=== PATIENT | female | born 1940 | race Caucasian/White ===

== ENCOUNTER 2024-04-22 15:02 | Inpatient (IN) | payer OTHER, SELFPAY ==
[2024-04-22] VITALS (12 sets, daily range): BP systolic 82–165; BP diastolic 52–97; BMI 29.2
--- NOTE | 2024-04-22 09:46 | W.PN.CARDCBS ---
Today's Communication / Plan
-
DC pacemaker implant
CXR post procedure
Check creat, K+ in AM
Impression / Plan
-
This is the H&P summary.
Fully H&P scanned into chart.
PCP: Dorita Wilcox NP
CDY: Richard Davalos MD
HPI: 83 y/o white female, several episodes syncope in the past year that was felt to be r/t orthostasis and dehydration. She has never seen a data control clerk supervisor and has never had a Holter monitor. She did have an echo about a year ago which showed
preserved LVEF 50-55%, Mild aortic stenosis and trace aortic regurgitation.
She was at home and became confused and lethargic, called for help. Lives w/son and daughter in law who called EMS, concerned for dehydration. Initial EKG with 3rd deg HB with junctional escape in the 20s, no clear ischemic changes. Brought to [facility]
where she remained lethargic and confused, therefore a temporary pacemaker was placed via RIJ. Procedure complicated by loss of escape rhyhm and failur to capture, resulting in brief PEA arrest. ROSC achieved after CPR, intubation, and successful
capture with TVP wire. Stat bedside echo in the ICU showed preserved or low normal LVEF around 50%, nml RVSF, no severe or MR, no pericardial effusion.
Post extubation, she became hypoxemic with pulmonary edema, responded well to IV lasix.
Transferred today for pacemaker implant. Currently awake and alert, answering questions appropriately.
TVP currently functioning well and set to VVI rate 100, output 2mA. Tested capture threshold excellent at 0.6mA.
IMPRESSION:
Syncope
Complete heart block
Cardiogenic shock d/t heart block/bradycardia
Brief PEA s/p CPR with ROSC
Pulmonary edema
Transient OSEAS, resolved
Hyperkalemia, resolved
HTN
HLD
DM
PLAN:
Pt is extubated and mentating normally
All AVN blockers were held- pt on acebutelol 400mg/daily
DC PPM implant today
CXR post procedure
Resume acebutelol post device
monitor overnight on tele
Creatinine up to 1.16 on admission, now down to 0.79
Potassium 6.5 on admit, now 4.2
repeat labs in AM
Cardiology followup and incision check with Dr. Davalos
Progress Note - Rickshaw Driver
Subjective
Date of Service: April 22, 2024
[2024-04-22 10:47] LABS: Glucose - Point of Care 138 mg/dl (70-99)
--- NOTE | 2024-04-22 12:46 | ITS.CL.PACE ---
[employer] - Pacemaker Implant
Pacemaker Implant
Procedure Report:
Date of Procedure: April 22, 2024.
Procedure: Pacemaker Implantation. Left upper extremity venogram. Temporary pacemaker removal.
Indication: The pacemaker is for the treatment of nonreversible symptomatic bradycardia due to paroxysmal third degree atrioventricular block resulting in recurrent syncope.
Performing physician: Arthur Dickinson MD, [facility].
Implants:
Pulse Generator: Medtronic; Model# [id number]; Serial# [id number].
RA Lead: Medtronic; Model# 5076-45cm; Serial# [id number].
RV Lead: Medtronic; Model# 5076-52cm; Serial# [id number].
Technique: A time out was performed. The procedure site was identified. The patient was anesthetized by the anesthesia service. Preoperative cefazolin was administered. The patient was prepped and draped in the usual fashion. Local anesthetic was
applied to the left prepectoral subcutaneous tissue. A 3 inch incision was made along the left deltopectoral groove. Dissection was carried to the fascia. The left cephalic vein was not found. A 10 mL upper extremity venogram demonstrated patent
left axillary, cephalic, and subclavian veins. The left axillary vein was accessed with two separate percutaneous micro- punctures without difficulty. The leads were introduced with hemostatic peel away introducer sheaths. The RV lead was placed at
the mid RV septum as confirmed by multiplane fluoroscopy. The ventricular lead was secured to the pectoralis muscle and fascia with two 0-silk sutures. The atrial lead was placed in the right atrial appendage. 8 volt pacing from each lead did not
capture the diaphragm. The atrial leads was secured to the pectoralis muscle and fascia. A subcutaneous pocket was created with Bovie cautery. Hemostasis was excellent. The leads were appropriately attached to the device. The pocket was irrigated
with antibiotic solution. The device and leads were placed in the pocket. The temporary pacemaker from the right internal jugular vein was removed under fluoroscopic control. The right internal jugular sheath was removed and hemostasis was achieved
with manual compression. The incision was closed in three layers with absorbable suture. Steri-strips and a silver impregnated dressing were placed. Estimated blood loss was less than t ml. There were no complications. Fluoroscopy time 4.2 minutes
and DAP 1.06 GyCM2. The device was then interrogated after skin closure.
Lead Analysis:
RA lead: P: 1.5 mV; Threshold: 0.5 V @ 0.4 ms; Impedance: 437 ohms.
RV lead: R: 5.8 mV; Threshold: 0.5 V @ 0.4 ms; Impedance: 570 ohms.
Final Programming: DDDR 60-130 bpm.
Conclusion: Uncomplicated Medtronic pacemaker implant. The pacing system is MRI conditional.
Recommendation: Routine post pacemaker care.
cc: HERNAN James and Richard Davalos MD ([facility] Cardiology).
[2024-04-22 14:16] LABS: Glucose - Point of Care 136 mg/dl (70-99)
[2024-04-22] MEDS: NOVOLOG FLEXPEN-MODERATE RESISTANCE SC (14:20)
[2024-04-22] MEDS: ULTRAM 25 MG PO ×2 (14:35→20:45)
--- NOTE | 2024-04-22 15:22 | PTCARENOTE ---
Rec'd Pt 1300 from EP lab s/p PPM, A,A+Ox3, having some discomfort L CW. Pressure dsg D+I.
--- NOTE | 2024-04-22 15:26 | CM ---
Reviewed chart. Met with Mrs. Nair and her son and [id number] in a two story home with four steps to enter. She has a full flight of stairs to get to bedroom/full bathroom. She states shs has a stair glide to get to the second floor. She has
a powder oom on the first floor. Prior to admission she ambulates in the home independent and uses a single point cane in the community. She has a stair glide and single point cane in the home. She has never had [facility]. She states her
family will be able to be available to assist her or the first three weeks if needed. She states she has a prescription plan. Medical work-up in progress. The discharge plan is to return home with her son and [id number] when medically
stable.
[2024-04-22 17:37] LABS: Glucose - Point of Care 262 mg/dl (70-99)
[2024-04-22] MEDS: ANCEF 5 IV (18:06)
[2024-04-22] MEDS: NOVOLOG FLEXPEN-MODERATE RESISTANCE 5 UNITS SC (18:08)
[2024-04-22] MEDS: NEURONTIN 600 MG PO (20:37)
[2024-04-22] MEDS: SECTRAL 400 MG PO (20:38)
[2024-04-22 21:50] LABS: Glucose - Point of Care 138 mg/dl (70-99)
[2024-04-23 01:56] VITALS: BP 141/76
[2024-04-23] MEDS: ANCEF 5 IV (02:12)
--- NOTE | 2024-04-23 02:22 | PTCARENOTE ---
Pt. in NSR most of the times, does V-pace when sleeping. Other vitals stable. Left chest wall pressure dressing CDI, no S&S bleeding/hematoma, circulation intact to left hand. Immobilizer on left arm. Ultram effective for incisional/left chest
discomfort. Voiding without difficulty following Napoles removal yesterday. Ambulates with assist x 1. Pt. sleeping.
[2024-04-23 02:59] LABS: Hematocrit 31.4 % (37.0-47.0); Hemoglobin 10.7 g/dL (12.0-16.0); Mean Corp Hgb Conc. 34.1 g/dL (33.0-37.0); Mean Corpuscular Hgb 29.6 pg (27.0-31.0); Mean Platelet Volume 10.3 fL (7.4-10.4); Platelet Count 314 10^3/uL (130-400); Red Blood Cell Count 3.61 10^6/uL (4.20-5.40); Red Cell Dist. Width 13.4 % (11.5-14.5); White Blood Cell Count 10.2 10^3/uL (4.8-10.8)
[2024-04-23 03:23] LABS: Blood Urea Nitrogen 23 mg/dl (7-17); Calcium 9.2 mg/dl (8.4-10.2); Carbon Dioxide 26 mmol/L (22-30); Chloride 91 mmol/L (98-107); Estimated Creatinine Clearance 52 ml/min; Glucose 125 mg/dl (70-99); Magnesium 1.5 mg/dl (1.6-2.3); Potassium 4.4 mmol/L (3.5-5.1); Sodium 130 mmol/L (135-145); eGFR > 60.00
--- NOTE | 2024-04-23 07:13 | W.PN.CARDCBS ---
Addendum entered and electronically signed by Zhang Abel MD 04/23/24 08:04:
83-year-old woman withComplete heart block at [place], status post brief PEA arrest, successful placement of temporary pacemaker, transferred here for pacemaker which was implanted uneventfully on April 22.
PMH: Hypertension, hyperlipidemia, diabetes, mild aortic stenosis
Allergies: Celebrex
Outpatient medications: Reviewed
Current medications: Sliding scale insulin, amlodipine 10 mg a day, aspirin 81 mg daily, atorvastatin 10 mg a day, acebutolol 400 twice daily, Neurontin, magnesium
141/76, pulse 76, afebrile, intake and output -1.5 L if accurate, no distress, small amount of old blood under Aquacel, head neck exam unremarkable lungs are clear, aortic stenosis murmur, abdomen benign no edema, left upper extremity int
Chest x-ray dual-chamber pacemaker with conduction system pacing, flattened diaphragms,
Hemoglobin 10.7, white count 10.2, sodium is 130, CO2 is 26 BUN and creatinine are 23 and 0.7, magnesium is 1.5
Impression:
See below.
Plan:
Stable for discharge. See instructions.
Original Note:
Today's Communication / Plan
-
-discharge to home
-f/u with Dr Davalos 1 week-scheduled
-repeat BMP, Mag 3 days
Impression / Plan
-
This is the H&P summary.
Fully H&P scanned into chart.
PCP: Dorita Wilcox NP
CDY: Richard Davalos MD
HPI: 83 y/o white female, several episodes syncope in the past year that was felt to be r/t orthostasis and dehydration. She has never seen a emt driver and has never had a Holter monitor. She did have an echo about a year ago which showed
preserved LVEF 50-55%, Mild aortic stenosis and trace aortic regurgitation.
She was at home and became confused and lethargic, called for help. Lives w/son and daughter in law who called EMS, concerned for dehydration. Initial EKG with 3rd deg HB with junctional escape in the 20s, no clear ischemic changes. Brought to [facility]
where she remained lethargic and confused, therefore a temporary pacemaker was placed via RIJ. Procedure complicated by loss of escape rhyhm and failur to capture, resulting in brief PEA arrest. ROSC achieved after CPR, intubation, and successful
capture with TVP wire. Stat bedside echo in the ICU showed preserved or low normal LVEF around 50%, nml RVSF, no severe or MR, no pericardial effusion.
Post extubation, she became hypoxemic with pulmonary edema, responded well to IV lasix.
Transferred 04/22/24 for pacemaker implant. Currently awake and alert, answering questions appropriately.
TVP currently functioning well and set to VVI rate 100, output 2mA. Tested capture threshold excellent at 0.6mA.
s/p DC Medtronic pacemaker 04/22/24
IMPRESSION:
POD 1 s/p dual chamber pacemaker
Syncope
Complete heart block
Cardiogenic shock d/t heart block/bradycardia
Brief PEA s/p CPR with ROSC
Pulmonary edema
Transient OSEAS, resolved
Hyperkalemia, resolved
HTN
HLD
DM
hyponatremia
PLAN:
-s/p DC pacemaker 04/22/24
-pressure dressing removed - no hematoma
-Aquacell dressing in place
-Reviewed activity restrictions status post new pacemaker
-incision check and cardiology f/u scheduled for 1 week w/ Dr Davalos
-restarted acebutelol 400mg/daily
-EKG: NSR w/ iRBBB
-telem: NSR w/ occ Vpacing, HR 80s
Creatinine up to 1.16 on admission, now down to 0.7
-Mag 1.5-rec'd 500 mg Mag supplement 04/22/24
-Na 130 04/22/24- 134 on admit - not on diuretic but did receive IV Lasix for pulm edema. Repeat BMP, mag 5 days- lab slip provided and pt aware
Potassium 6.5 on admit, now 4.4 04/22/24
Cardiology followup and incision check with Dr. Davalos
Progress Note - Composite Laminator
Subjective
Date of Service: April 23, 2024
s/p DC pacemaker 04/22/24
Feels good, no fever, chills
-incision site sl sore
-Mag 1.5-repleted
-Na 130
Objective
Labs:
04/23/24 02:06
04/23/24 02:06
Labs
Hgb 10.7 g/dL (12.0-16.0) L 04/23/24 02:06
Hct 31.4 % (37.0-47.0) L 04/23/24 02:06
Plt Count 314 10^3/uL (130-400) 04/23/24 02:06
Sodium 130 mmol/L (135-145) L 04/23/24 02:06
Potassium 4.4 mmol/L (3.5-5.1) 04/23/24 02:06
BUN 23 mg/dl (7-17) H 04/23/24 02:06
Creatinine 0.7 mg/dL (0.6-1.0) 04/23/24 02:06
Glucose 125 mg/dl (70-99) H 04/23/24 02:06
Vital Signs and I&O:
Vital Signs
Temp Pulse Resp BP Pulse Ox
98.4 F 76 18 141/76 92
04/23/24 01:56 04/23/24 02:00 04/23/24 01:56 04/23/24 01:56 04/23/24 01:56
Vital Signs
Temp Pulse Resp BP Pulse Ox
98.4 F 76 18 141/76 92
04/23/24 01:56 04/23/24 02:00 04/23/24 01:56 04/23/24 01:56 04/23/24 01:56
Intake & Output
04/21/24 04/22/24 04/23/24 04/24/24
06:59 06:59 06:59 05:59
Intake Total 240 / 240
Output Total 1700 / 1700
Balance -1460 / -1460
Physical Exam
Physical Exam
GEN: No distress, awake, Ox3
HEENT: supple, anicteric, mmm
LUNGS: CTA, no wheezes/rales
CV: Reg, S1/S2, no murmur
ABD: soft, BS+, NT/ND
EXT: No edema
NEURO: Gross non-focal
SKIN: LACW pacer site- removed pressure dressing , aquacell drsg in place, no hematoma.
--- NOTE | 2024-04-23 07:23 | W.DS.TRANS ---
DC Summary - Blueprint Engineer
-
Discharge Instructions:
Discharge Diagnosis/Procedures Heart block, post Pacemaker implant
Diet Low Cholesterol,Diabetic, Carb Controlled
Driving Restrictions No driving for 1 week
Bathing Restrictions OK to Shower
Blood Work get bloodwork in 3 days - BMP, Magnesium-order
for labs provided
Instructions:
Stand-Alone Forms: DC Inst - Implanted Device
Changes to Home Medications: No
Discharge Medications:
DC Medications w/original date entered in [employer]
acebutolol 400 mg capsule 400 mg PO BID Blood Pressure 04/22/24
amlodipine 10 mg tablet 10 mg PO DAILY Blood Pressure 04/22/24
aspirin 81 mg tablet,delayed release 81 mg PO DAILY Blood Clot Prevention/Tx 04/22/24
gabapentin 600 mg tablet 600 mg PO BID Neurological Condition 04/22/24
metformin 1,000 mg tablet 1,000 mg PO BID Diabetes 04/22/24
simvastatin 20 mg tablet 20 mg PO DAILY High Cholesterol 04/22/24
tizanidine 2 mg tablet 4 mg PO BID PRN spasms 04/22/24
Home Medication Changes
Pending Results: No
Total time spent discharging patient (in min): 25
[2024-04-23 07:31] VITALS: BP 130/81
[2024-04-23] MEDS: NORVASC 10 MG PO (08:19)
[2024-04-23] MEDS: LIPITOR 10 MG PO (08:19)
[2024-04-23] MEDS: SECTRAL 400 MG PO (08:19)
[2024-04-23] MEDS: NEURONTIN 600 MG PO (08:19)
[2024-04-23] MEDS: ASPIR LOW (ENTERIC COATED) 81 MG PO (08:19)
[2024-04-23] MEDS: MAGNESIUM OXIDE 500 MG PO (08:20)
[2024-04-23 08:35] LABS: Glycohemoglobin (HgbA1c) 7.2 % (4.0-5.6)
--- NOTE | 2024-04-23 09:49 | PTCARENOTE ---
assessment as documented, VSS. Pt w/o complaints. PM Site WNL and Immobilizer on. Pending DC
[2024-04-23 10:28] VITALS: BP 119/79
== END 2024-04-23 11:37 | disposition home or self-care (01) | DRG 242 ==
LOC: IVU 15:02
PROVIDERS: Internal Medicine Cardiovascular Disease; Nurse Practitioner Adult Health; ADMITTING PHYSICIAN Internal Medicine Cardiovascular Disease; FAMILY PHYSICIAN Nurse Practitioner Family
PROC: 0JH606Z Insertion of Pacemaker, Dual Chamber into Chest Subcutaneous Tissue and Fascia, Open Approach (ICD-10-PCS; 2024-04-22)
PROC: 02HK3JZ Insertion of Pacemaker Lead into Right Ventricle, Percutaneous Approach (ICD-10-PCS; 2024-04-22)
PROC: 02PA3MZ Removal of Cardiac Lead from Heart, Percutaneous Approach (ICD-10-PCS; 2024-04-22)
PROC: 02H63JZ Insertion of Pacemaker Lead into Right Atrium, Percutaneous Approach (ICD-10-PCS; 2024-04-22)
DX: I44.2 Atrioventricular block, complete (principal); R57.0 Cardiogenic shock; N17.9 Acute kidney failure, unspecified; I10 Essential (primary) hypertension; E78.5 Hyperlipidemia, unspecified; E11.9 Type 2 diabetes mellitus without complications; E87.5 Hyperkalemia; Z86.74 Personal history of sudden cardiac arrest
CPT/HCPCS: 33208; 71045; 80048; 82962; 83036; 83735; 85027; 87070; 87147; 93005; C1769; C1785; C1892; C1898; Q9967